=== PATIENT | male | born 1990 | race Hispanic/Latino ===

== ENCOUNTER 2019-02-11 20:44 | Emergency (ER) | payer OTHER ==
[2019-02-11] MEDS ORDERED: TETANUS/DIPHTHERIA TOXOID [ADULT] 0.5 ML VIAL IM ONE (21:00)
[2019-02-11] MEDS ORDERED: LIDOCAINE HCL 1% 20 ML VIAL ONE (21:00)
[2019-02-11] MEDS ORDERED: ACETAMINOPHEN EXTRA STRENGTH 500 MG TABLET ONE (21:00)
[2019-02-11] MEDS ORDERED: CEFAZOLIN SODIUM 1 GM VIAL ONE (21:16)
== END 2019-02-11 22:15 | disposition home or self-care (01) ==
LOC: EDH 20:44
DX: S62.634B Displaced fracture of distal phalanx of right ring finger, initial encounter for open fracture (principal); W26.8XXA Contact with other sharp object(s), not elsewhere classified, initial encounter; Y93.H2 Activity, gardening and landscaping; Y92.096 Garden or yard of other non-institutional residence as the place of occurrence of the external cause; Y99.8 Other external cause status
CPT/HCPCS: 29130; 73130; 90471; 90714; 96372; 99284; J0690

== ENCOUNTER 2023-01-18 17:20 | Emergency (ER) | payer OTHER ==
[~2023-01-18] VITALS: Ht 167.6 cm; Wt 158.8 kg
[2023-01-18 19:37] VITALS: BP 135/68
== END 2023-01-18 19:42 | disposition left against medical advice (07) ==
LOC: EDH 17:20
DX: K13.79 Other lesions of oral mucosa (principal); Z53.21 Procedure and treatment not carried out due to patient leaving prior to being seen by health care provider
CPT/HCPCS: 99281

== ENCOUNTER 2023-01-19 01:45 | Emergency (ER) | payer OTHER ==
[~2023-01-19] VITALS: Ht 167.6 cm; Wt 158.8 kg
[2023-01-19] MEDS ORDERED: OXYMETAZOLINE HCL SPRAY 15 ML BOTTLE ONE (02:49)
[2023-01-19] MEDS ORDERED: OXYMETAZOLINE HCL SPRAY 15 ML BOTTLE EN SCH (03:00)
[2023-01-19 03:58] VITALS: BP 132/78
== END 2023-01-20 04:28 | disposition home or self-care (01) ==
LOC: EDH 01:45
DX: K06.8 Other specified disorders of gingiva and edentulous alveolar ridge (principal); K05.10 Chronic gingivitis, plaque induced; Z90.49 Acquired absence of other specified parts of digestive tract
CPT/HCPCS: 99282

== ENCOUNTER 2024-07-05 22:00 | Emergency (ER) | payer SELFPAY ==
[~2024-07-05] VITALS: Ht 167.6 cm; Wt 161.3 kg
[2024-07-06 00:10] LABS: BASOPHILS # (AUTO) 0.04 K/uL (0.00-0.20); BASOPHILS % (AUTO) 0.7 % (0.0-5.0); EOSINOPHILS # (AUTO) 0.16 K/uL (0.00-0.70); EOSINOPHILS % (AUTO) 2.8 % (0.0-8.0); HEMATOCRIT 36.6 % (42-54); IMMATURE GRANULOCYTE ABSOLUTE 0.03 K/uL (0-1); LYMPHOCYTES # (AUTO) 1.6 K/uL (1.0-4.8); LYMPHOCYTES % (AUTO) 27.9 % (21.0-51.0); MEAN CORPUSCULAR HEMOGLOBIN 31.5 pg (27.0-33.0); MEAN CORPUSCULAR HGB CONC 35.2 g/dL (32.0-36.0); MEAN CORPUSCULAR VOLUME 89.3 fL (79-99); MONOCYTES # (AUTO) 0.4 K/uL (0.1-1.0); MONOCYTES % (AUTO) 7.1 % (3.0-13.0); NEUTROPHILS # (AUTO) 3.4 K/uL (1.8-7.7); PLATELET COUNT (AUTO) 165 K/uL (130-400); RED CELL DISTRIBUTION WIDTH 12.9 % (11.0-15.5); WHITE BLOOD COUNT (AUTO) 5.6 K/uL (4.8-10.8)
[2024-07-06 00:16] LABS: CREATININE 1.2 mg/dL (0.5-1.3); MAGNESIUM 1.8 mg/dL (1.80-2.40); POTASSIUM 3.7 mmol/L (3.5-5.1)
[2024-07-06] MEDS: LAbetaLOL 20MG SYG IV ONE (00:46)
[2024-07-06 01:05] VITALS: BP 176/89; PULSE 89; RESP 19; TEMP 98.8; O2SAT 100
[2024-07-06] MEDS ORDERED: BETA45CR3 TP (01:33)
--- NOTE | 2024-07-06 01:33 | ERN ---
General Chief Complaint: Penis Problem Stated Complaint: "SKIN GOT TIGHT AROUND THE HEAD OF KELLY" Time Seen by MD: 22:19 History of Present Illness Allergies: Coded Allergies: No Known Allergies (Unverified Allergy, Unknown, 01/18/23) Past Medical History Past Medical History: No Pertinent History Past Surgical History: Tonsillectomy Results Laboratory and Microbiology Lab and Micro Result Laboratory Tests Test 07/05/24 23:55 White Blood Count 5.6 K/uL (4.8-10.8) Red Blood Count 4.10 MIL/uL (4.50-6.20) L Hemoglobin 12.9 g/dL (14.0-18.0) L Hematocrit 36.6 % (42-54) L Mean Corpuscular Volume 89.3 fL (79-99) Mean Corpuscular Hemoglobin 31.5 pg (27.0-33.0) Mean Corpuscular Hemoglobin Concent 35.2 g/dL (32.0-36.0) Red Cell Distribution Width 12.9 % (11.0-15.5) Platelet Count 165 K/uL (130-400) Mean Platelet Volume 10.5 fL (7.5-10.5) Immature Granulocyte % (Auto) 0.5 % (0-1) Neutrophils (%) (Auto) 61.0 % (40.0-77.0) Lymphocytes (%) (Auto) 27.9 % (21.0-51.0) Monocytes (%) (Auto) 7.1 % (3.0-13.0) Eosinophils (%) (Auto) 2.8 % (0.0-8.0) Basophils (%) (Auto) 0.7 % (0.0-5.0) Neutrophils # (Auto) 3.4 K/uL (1.8-7.7) Lymphocytes # (Auto) 1.6 K/uL (1.0-4.8) Monocytes # (Auto) 0.4 K/uL (0.1-1.0) Eosinophils # (Auto) 0.16 K/uL (0.00-0.70) Basophils # (Auto) 0.04 K/uL (0.00-0.20) Absolute Immature Granulocyte (auto 0.03 K/uL (0-1) Nucleated Red Blood Cells 0.0 % (0.0-0.19) Sodium Level 138 mmol/L (136-145) Potassium Level 3.7 mmol/L (3.5-5.1) Chloride Level 101 mmol/L (101-111) Carbon Dioxide Level 27 mmol/L (21-32) Blood Urea Nitrogen 14 mg/dL (7-18) Creatinine 1.2 mg/dL (0.5-1.3) Glomerular Filtration Rate Calc 80 mL/min (>90) Random Glucose 247 mg/dL (70-105) H Total Calcium 8.0 mg/dL (8.5-10.1) L Magnesium Level 1.80 mg/dL (1.80-2.40) Troponin I High Sensitivity 15 ng/L (4-75) ED Course Orders Procedure Category Date Status Time 12 Lead Ekg Tracing- EKG 07/05/24 Logged Technical 23:48 Cbc With Differential LAB 07/05/24 Complete 23:48 Basic Metabolic Panel LAB 07/05/24 Complete 23:48 Troponin I High LAB 07/05/24 Complete Sensitivity 23:48 Urinalysis Profile LAB 07/05/24 In Process 23:48 Drug Screen Urine LAB 07/05/24 In Process 23:48 Magnesium LAB 07/05/24 Complete 23:48 Labetalol 20mg Syg PHA 07/06/24 In Process (Trandate 20mg Syg) 00:00 Current Medications Medications (Trade) Dose Ordered Sig/Carlota Route PRN Reason Start Time Stop Time Status Last Admin Dose Admin Labetalol HCl (TRANdate 20MG SYG) 10 mg ONCE ONCE IV 07/06/24 00:00 07/06/24 00:01 07/06/24 00:46 Vital Signs Date Time Temp Pulse Resp B/P (MAP) Pulse Ox O2 Delivery O2 Flow Rate FiO2 07/06/24 01:05 98.8 89 19 176/89 100 Room Air* 0 07/06/24 00:46 103 192/96 07/06/24 00:25 98.4 105 20 192/96 100 Room Air* 0 21 07/05/24 23:34 98.4 100 19 213/132 100 Room Air* 0 21 07/05/24 22:01 98.1 100 20 187/92 100 Room Air DX & DISP Departure Impression: Primary Impression: Paraphimosis Additional Impression: Elevated blood pressure reading Condition: Stable Scripts Betamethasone Dipropionate (Betamethasone Dipropionate) 0.05 % Cream.gm. 1 APPL TP DAILY for 7 Days, #15 GM 0 Refills apply to affected area(s) Prov: ISAAC CADENA 07/06/24 Additional Instructions: Your blood work today is stable. Your cardiac enzymes are negative. Your genital examination is consistent with a paraphimosis. You will need to see a urologist outpatient for further evaluation. I have given you a follow up with Dr. Walker. You were found to have a blood pressure of over 200 systolic in the emergency department. You were given medications to lower your blood pressure however I believe he should follow up with the primary care doctor for further evaluation outpatient. You will need to be tested for type 2 diabetes, cholesterol, and hypertension. If you develop any new or worsening symptoms please report to the emergency department for further evaluation. Referrals: SELF,REFERRAL (PCP) Time of Disposition: 01:30 I have reviewed the case, and I agree with, Diagnosis and Plan I performed the substantive portion of the visit. I have reviewed and personally made and approve the management plan that is documented in the note by myself or the BRYSON. I acknowledge for responsibility for the patient's management plan. ISAAC CADENA Jul 06, 2024 01:33
[2024-07-06 01:35] LABS: ADD UA MICROSCOPIC YES; APPEARANCE,URINE CLEAR (CLEAR); BILIRUBIN,URINE NEGATIVE (NEGATIVE); COLOR,URINE LIGHT-YELLOW (YELLOW); GLUCOSE, URINE (UA) >=1000 mg/dL (NEGATIVE); KETONES,URINE 5 mg/dL (NEGATIVE); LEUKOCYTE ESTERASE ,URINE NEGATIVE Leu/uL (NEGATIVE); NITRATE,URINE NEGATIVE (NEGATIVE); OCCULT BLOOD,URINE NEGATIVE (NEGATIVE); PROTEIN,URINE 20 mg/dL (NEGATIVE)
[2024-07-06 01:37] LABS: AMPHET/METH SCREEN,URINE NEGATIVE (NEGATIVE); BARBITURATE SCREEN, URINE NEGATIVE (NEGATIVE); BENZODIAZEPINES SCREEN,URINE NEGATIVE (NEGATIVE); CANNABINOID SCREEN,URINE NEGATIVE (NEGATIVE); COCAINE SCREEN,URINE NEGATIVE (NEGATIVE); OPIATE SCREEN,URINE NEGATIVE (NEGATIVE); PHENCYCLIDINE SCREEN,URINE NEGATIVE (NEGATIVE)
[2024-07-06 01:58] LABS: MUCUS,URINE RARE LPF (None Seen); RBC,URINE 0-1 /HPF (0-1); SQUAMOUS EPITHELIAL CELL,UR RARE /HPF (0-2)
--- NOTE | 2024-07-06 06:35 | EKG ---
[facility] Test Date: 2024-07-05 Test Time: 23:54:57 Pat Name: MOLINA MARSHALL Department: ED Room: Gender: M Rn X Ray: [id number] : 1990 Requested By: ISAAC CADENA Order Number: [id number] Reading MD: Lucretia Brooke Measurements Intervals [place] Rate: 102 P: 26 OK: 141 QRS: 18 QRSD: 88 T: 52 QT: 361 QTc: 471 Interpretive Statements Sinus tachycardia Probable LVH with secondary repol abnrm No previous ECG available for comparison Electronically Signed On 07-06-2024 13:14:06 ENVELOPE STUFFER by Lucretia Brooke Please click the below link to view image of tracing.
== END 2024-07-06 01:38 | disposition home or self-care (01) ==
LOC: EDH 22:00
DX: N47.2 Paraphimosis (principal); R03.0 Elevated blood-pressure reading, without diagnosis of hypertension; Z90.89 Acquired absence of other organs
CPT/HCPCS: 36415; 80048; 80305; 81001; 83735; 84484; 85025; 87086; 93005; 96374; 99285